=== PATIENT | female | born 1980 | race Caucasian/White ===

== ENCOUNTER 2023-12-26 12:50 | Emergency (ER) | payer BC, SELFPAY ==
[2023-12-26 13:22] LABS: #Basophils 0.06 10x3/uL (0.0-0.2); #Monocytes 0.53 10x3/uL (0.0-1.1); #Neutrophils 4.07 10x3/uL (1.5-8.4); %Basophils 0.9 % (0.0-2.0); %Eosinophils 1.4 % (0.0-6.0); %Lymphocytes 31.3 % (18.0-47.0); %Monocytes 7.6 % (0.0-10.0); %Neutrophils 58.7 % (40.0-75.0); Hematocrit 38.5 % (34.9-44.5); Hemoglobin 12.3 g/dL (12.0-15.5); Mean Corpuscular HGB CONC 31.9 g/dL (32.0-36.0); Mean Corpuscular Hemoglobin 24.5 pg (27.0-33.0); Mean Corpuscular Volume 76.5 fl (81.6-98.3); Mean Platelet Volume 9.7 fl (7.4-10.4); Platelet Count 360 10x3/uL (150-450); RBC Distribution Width 17.3 % (11.5-14.5); Red Blood Cell (RBC) Count 5.03 10x6/uL (3.90-5.03); White Blood Cell (WBC) Count 6.9 10x3/uL (3.5-10.5)
[2023-12-26 13:37] LABS: ALT (SGPT) 47 U/L (8-55); AST (SGOT) 36 U/L (5-34); Albumin 3.9 g/dL (3.5-5.0); Alkaline Phosphatase 61 U/L (40-110); Anion Gap 11 mmol/L (10-20); BUN (Urea Nitrogen) 12 mg/dL (7.0-18.7); Bilirubin, Total 0.9 mg/dL (0.2-1.2); Calc. Creatinine Clearance 0 mL/min (70-130); Calcium 9.4 mg/dL (7.8-10.44); Carbon Dioxide 27 mmol/L (22-29); Chloride 106 mmol/L (98-107); Estimated GFR 93; Glucose 108 mg/dL (70-105); Potassium 4.1 mmol/L (3.5-5.1); Protein, Total 6.9 g/dL (6.0-8.3); Sodium 140 mmol/L (136-145)
[2023-12-26 13:44] LABS: Troponin I Less than 0.010 ng/mL (< 0.028)
[2023-12-26] MEDS ORDERED: Metoprolol Tartrate 25 MG TAB ONE (13:56)
== END 2023-12-26 14:14 | disposition home or self-care (01) ==
LOC: CSHERS 12:50
DX: I47.10 Supraventricular tachycardia, unspecified (principal)
CPT/HCPCS: 80053; 83735; 84443; 84484; 85025; 93005; 93010